=== PATIENT | male | born 1955 | race Caucasian/White ===

== ENCOUNTER 2023-01-25 10:00 | Emergency (ER) | payer MEDICARE, OTHER, SELFPAY ==
[2023-01-25] VITALS (32 sets, daily range): BP systolic 117–180; BP diastolic 84–97; PULSE 50–64; RESP 16; TEMP 36.6; O2SAT 93–98; BMI 30.8
--- NOTE | 2023-01-25 11:00 | CRLHL7_ITS ---
For Patients: As a result of the Cures Act, medical imaging exams and procedure reports are released immediately into your electronic medical record. You may view this report before your referring provider. If you have questions, please contact your health care provider. INDICATION: Chest pain TECHNIQUE: Chest 2 views COMPARISON: None FINDINGS: Surgical clips right upper quadrant. Osseous loose bodies in the subcoracoid space left shoulder measuring in total 2.3 cm. Aortic tortuosity. Discogenic spurring thoracic spine. No infiltrate or edema. No effusion or pneumothorax. IMPRESSION: No acute cardiopulmonary disease. Dictated by Michael Horner MD @ 01/25/2023 11:40:22 AM (Electronically Signed)
--- NOTE | 2023-01-25 11:16 | ED_ITS ---
HPI - General Adult General Date Seen: 01/25/23 Chief complaint: Chest Pain Stated complaint: Chest pain Time Seen by Provider: 01/25/23 10:26 History of Present Illness HPI narrative: This is a pleasant 67-year-old male with a past history of hypertension, dyslip idemia (and also possible self diagnosed GERD) who presents to the ER today with concern for chest discomfort. He is here with his to help supplement his history. Patient is generally very physically active and exercises vigorously. He does not have any history of cardiovascular disease or stents. He does have a history of hypertension and his long-term controlled on metoprolol and history of dyslipidemia (managed on atorvastatin). He has a family history of coronary disease; his brother and his mother. He had had a history of reflux of started himself on Prilosec OTC a few years ag o. About about a month ago he decided to take himself off it because he was concerned it was linked to develop an of dementia. He also gives blood regularly. Last month any went to give blood he was noted to be hypertensive (roughly 150/90). Based on that information he made the decision to increase his long-term dose of metoprolol from 50 mg daily up to 100 mg daily and has been taking that dose since last month. For about the past week or so he has been having some discomfort in the substernal region of his chest. It feels like a burning or and I see feeling. It is present most of the time. He does not really know what brings it on or makes it better. He does not think it was there this morning when he was working out but it was there this morning at around 6:15 a.m. after he was home from working out. There is not exertional component. Sometimes he gets a gassy feeling in his upper back, but that is a more long-term symptoms. No other new symptoms this week. No pain through to the back. No pleuritic pain. No swelling in his legs. No fever. No cough. No trouble breathing. No palpitations. No abdominal pain. Related Data Home Medications Medication Instructions Recorded Confirmed atorvastatin .ROUTE 01/25/23 metoprolol tartrate .ROUTE 01/25/23 Allergies Allergy/AdvReac Type Severity Reaction Status Date / Time No Known Drug Allergies Allergy Verified 01/25/23 10:15 PFSH PFSH Social History Smoking Status: Never smoker How often do you have a drink containing alcohol: monthly or less AUDIT-C Alcohol total score: 1 Non-prescribed substance use: denies use Exam Narrative: Exam Narrative: Constitutional: Appears well-developed and well-nourished. Alert. Conversant. Non toxic. HENT: Head: Atraumatic. Nose: Nose normal. Mouth/Throat: Oral mucosa is clear and moist. no trismus. Pharynx normal. Tonsils symmetric. No tonsillar enlargement, erythema, or exudate. Eyes: Conjunctivae normal. EOM normal. Pupils equal, round, and reactive to light. No scleral icterus. Neck: Normal range of motion. Neck supple. No tracheal deviation present. No JVD Cardiovascular: Bradycardic, sinus bradycardic 54 on the monitor. regular rhythm. No gallop. No friction rub. No murmur heard. Symmetric radial and PT/DP artery pulses Pulmonary/Chest: Effort normal. No stridor. No respiratory distress. No wheezes. No rales. No rhonchi . No tenderness. Abdominal: Soft. Bowel sounds normal. No distension. No mass. No tenderness. No rebound. No guarding. Musculoskeletal: RUE: Normal range of motion. No tenderness. No deformity LUE: Normal range of motion. No tenderness. No deformity RLE: Normal range of motion. No edema. No tenderness. No deformity LLE: Normal range of motion. No edema. No tenderness. No deformity Lymph: No cervical adenopathy. Neurological: Alert and oriented to person, place, and time. Normal strength. CN II-VII intact. No sensory deficit. GCS eye subscore is 4. GCS verbal subscore is 5. GCS motor subscore is 6. Normal coordination Skin: Skin is warm and dry. No rash noted. No pallor. Normal capillary refill. Psychiatric: Normal mood. Normal affect. Const: Vital Signs, click to edit/add: Vital Signs - 24 hr 01/25/23 10:16 01/25/23 10:25 01/25/23 10:30 Temperature 97.9 F Pulse Rate 55 L 56 L Pulse Rate [Right Pulse Oximeter] 53 L Respiratory Rate 16 Blood Pressure Blood Pressure [Ri ght Upper Arm] 180/94 H Pulse Oximetry 97 96 96 Oxygen Delivery Me thod Room Air 01/25/23 10:45 01/25/23 11:00 01/25/23 11:23 Temperature Pulse Rate 64 50 L 53 L Pulse Rate [Right Pulse Oximeter] Respiratory Rate Blood Pressure Blood Pressure [Ri ght Upper Arm] Pulse Oximetry 97 96 96 Oxygen Delivery Me thod 01/25/23 11:28 01/25/23 11:30 01/25/23 11:32 Temperature Pulse Rate 53 L 54 L 64 Pulse Rate [Right Pulse Oximeter] Respiratory Rate Blood Pressure 165/97 H 132/87 Blood Pressure [Ri ght Upper Arm] Pulse Oximetry 95 97 95 Oxygen Delivery Me thod 01/25/23 11:45 01/25/23 11:47 01/25/23 12:00 Temperature Pulse Rate 54 L 56 L 58 L Pulse Rate [Right Pulse Oximeter] Respiratory Rate Blood Pressure 134/85 Blood Pressure [Ri ght Upper Arm] Pulse Oximetry 96 96 95 Oxygen Delivery Me thod 01/25/23 12:02 01/25/23 12:03 01/25/23 12:05 Temperature Pulse Rate 55 L 55 L Pulse Rate [Right Pulse Oximeter] Respiratory Rate Blood Pressure 132/94 H Blood Pressure [Ri ght Upper Arm] Pulse Oximetry 95 95 94 Oxygen Delivery Me thod 01/25/23 12:15 01/25/23 12:17 01/25/23 12:30 Temperature Pulse Rate 56 L 57 L 57 L Pulse Rate [Right Pulse Oximeter] Respiratory Rate Blood Pressure 133/89 Blood Pressure [Ri ght Upper Arm] Pulse Oximetry 96 93 95 Oxygen Delivery Me thod 01/25/23 12:32 01/25/23 12:33 01/25/23 12:45 Temperature Pulse Rate 58 L 58 L 59 L Pulse Rate [Right Pulse Oximeter] Respiratory Rate Blood Pressure 125/88 Blood Pressure [Ri ght Upper Arm] Pulse Oximetry 93 97 97 Oxygen Delivery Me thod 01/25/23 12:47 01/25/23 13:00 01/25/23 13:02 Temperature Pulse Rate 55 L 56 L 51 L Pulse Rate [Right Pulse Oximeter] Respiratory Rate Blood Pressure 129/91 H 133/85 Blood Pressure [Ri ght Upper Arm] Pulse Oximetry 95 96 98 Oxygen Delivery Me thod 01/25/23 13:15 01/25/23 13:17 01/25/23 13:30 Temperature Pulse Rate 57 L 57 L 53 L Pulse Rate [Right Pulse Oximeter] Respiratory Rate Blood Pressure 124/92 H Blood Pressure [Ri ght Upper Arm] Pulse Oximetry 97 96 96 Oxygen Delivery Me thod 01/25/23 13:32 01/25/23 13:33 01/25/23 13:45 Temperature Pulse Rate 57 L 57 L 58 L Pulse Rate [Right Pulse Oximeter] Respiratory Rate Blood Pressure 134/85 Blood Pressure [Ri ght Upper Arm] Pulse Oximetry 97 97 95 Oxygen Delivery Me thod Course Vital Signs Vital signs: Initial Vital Signs Temperature 97.9 F 01/25/23 10:16 Temperature Source Temporal Artery Scan 01/25/23 10:16 Pulse Rate 53 L 01/25/23 10:16 Pulse Rhythm Regular 01/25/23 10:16 Respiratory Rate 16 01/25/23 10:16 Blood Pressure 180/94 H 01/25/23 10:16 Blood Pressure Mean 122 H 01/25/23 10:16 Blood Pressure Position Sitting 01/25/23 10:16 Pulse Oximetry 97 01/25/23 10:16 Oxygen Delivery Method Room Air 01/25/23 10:16 Vital Signs Temperature 97.9 F 01/25/23 10:16 Pulse Rate 53 L 01/25/23 10:16 Respiratory Rate 16 01/25/23 10:16 Blood Pressure 180/94 H 01/25/23 10:16 Pulse Oximetry 97 01/25/23 10:16 Oxygen Delivery Method Room Air 01/25/23 10:16 Temperature 97.9 F 01/25/23 10:16 Pulse Rate 58 L 01/25/23 13:45 Respiratory Rate 16 01/25/23 10:16 Blood Pressure 134/85 01/25/23 13:32 Pulse Oximetry 95 01/25/23 13:45 Oxygen Delivery Method Room Air 01/25/23 10:16 Medical Decision Making MDM Narrative Medical decision making narrative: This patient presents to the ER today for evaluation of chest pain. Differential was broad. No evidence of palpitations, syncope or other cardiac dysrhythmia. We considered possible ACS, however workup with EKG and troponin is negative. HEART score is 3. Given time since onset of symptoms, I do not think the patient needs to be admitted for further sets of enzymes. EKG shows no evidence for pericarditis. Clinical presentation not suggestive of myocarditis. Chest x-ray shows no evidence for pneumonia, pneumothorax, pulmonary edema, pleural effusion, rib fracture, cardiomegaly. Mediastinum is normal on the x-ray. The patient has no ripping or tearing pain through to the back and has symmetric pulses on exam, no other acute neuro findings so I doubt aortic dissection. Risk of radiation and contrast exposure would outweigh the benefit of CT angiogram. We considered PE for this patient. d dimer is normal. No wheezing or bronchospasm to suggest COPD/asthma. No signs of chest wall cellulitis, shingles, injury. Patient recently took himself off a proton pump inhibitor. With his description of the pain as being somewhat burning and I see it is possible that this pain is related to esophagitis. That would be a diagnosis of exclusion. He will follow up with primary care for further evaluation. Consider EGD if pain not resolving. For now he does not want to restart PPI. BP was elevated at triage. BP came down to normal without antihypertensive treatment. He will continue on his metoprolol for now. Resting heart rate is in the 50s. He is not otherwise symptomatic or presyncopal from bradycardia. He will follow-up with his PCP for further blood pressure medication adjustments if needed. With reasonable clinical confidence, I think the patient is safe for outpatient follow up. Discussed return precautions. Questions answered. Patient voices comfort with the plan. Lab Data Labs: Lab Results 01/25/23 01/25/23 Range/Units 11:10 13:08 WBC 6.61 (4.50-11.00) K/uL RBC 4.22 L (4.30-5.90) m/uL Hgb 13.7 (13.5-17.5) gm/dL Hct 40.8 (37.0-53.0) % MCV 97 (80-100) fL MCH 33 (26-34) pg MCHC 34 (32-36) gm/dL RDW Coeff of Sadia 12.4 (11.5-15.5) % Plt Count 270 (140-440) K/uL Neut % (Auto) 63.5 (42.0-72.0) % Lymph % (Auto) 25.1 (20-44) % [place] % (Auto) 9.4 (0.0-11.0) % Eos % (Auto) 1.7 (0.0-7.0) % Baso % (Auto) 0.3 (0.0-3.0) % Neut # (Auto) 4.20 (1.7-7.0) K/uL Lymph # (Auto) 1.66 (0.90-2.90) K/uL [place] # (Auto) 0.60 (0.00-0.90) K/UL Eos # (Auto) 0.11 (0.00-0.50) K/uL Baso # (Auto) 0.02 (0.00-0.30) K/uL Abs Immat Gran (auto) 0.00 (0.00-0.30) K/uL Imm/Tot Granulo (auto) 0.0 % D-Dimer Quant (PE/DVT) 0.29 (0.00-0.50) ug/ml Sodium 141 (135-149) mmol/L Potassium 4.0 (3.6-5.1) mmol/L Chloride 106 (96-114) mmol/L Carbon Dioxide 27 (20-32) mmol/L Anion Gap 8 (7-15) mEq/L BUN 21 (7-30) mg/dL Creatinine 1.1 (0.5-1.5) mg/dL Estimated Creat Clear 57.46 Estimated GFR 74 ml/min Glucose 90 (60-115) mg/dL Calcium 9.6 (8.4-10.6) mg/dL Troponin I < 0.01 L < 0.01 L (0.01-0.04) ng/mL Imaging Data Chest x-ray: Radiologist's impression: IMPRESSION: No acute cardiopulmonary disease. ECG Data Attestation: I personally reviewed and interpreted this ECG as follows: Interpretation: Sinus bradycardia. Rate 53. IN 144 QRS axis normal axis. No pathologic Q-waves. ST segment/T wave: No ST segment elevation or depression. QTc: 409 Discharge Plan Discharge Clinical Impression: Chest pain Patient Disposition: Home, Self-Care Condition: Stable Instructions: Chest Pain (DC) Additional Instructions: If you have any worsening symptoms such as worsening chest pain, trouble breathing, lightheaded or dizzy spells, or any concerns, return to the ER immediately. Follow-up with your regular doctor within the next 1-5 days for a checkup and ask them to recheck your blood pressure and to arrange a stress test. Your blood pressure has come down to near normal here in the ER. Continue on your current blood pressure medications. Your heart rate is slow. This is probably a side effect of your metoprolol. See your regular doctor before you make any further medication adjustments. Prescriptions: No Action metoprolol tartrate .ROUTE atorvastatin .ROUTE Follow Up/Referrals: Provider,Not a Local [Primary Care Provider] - Stand Alone Forms: [employer] Info Instructions
[2023-01-25 11:23] LABS: Basophils Absolute Auto 0.02 K/uL (0.00-0.30); Basophils Percent Auto 0.3 % (0.0-3.0); Eosinophils Absolute Auto 0.11 K/uL (0.00-0.50); Eosinophils Percent Auto 1.7 % (0.0-7.0); Hematocrit 40.8 % (37.0-53.0); Hemoglobin* 13.7 gm/dL (13.5-17.5); Lymphocytes Absolute Auto 1.66 K/uL (0.90-2.90); Lymphocytes Percent Auto 25.1 % (20-44); Mean Corpuscular HGB Conc 34 gm/dL (32-36); Mean Corpuscular Hemoglobin 33 pg (26-34); Mean Corpuscular Volume 97 fL (80-100); Monocytes Percent Auto 9.4 % (0.0-11.0); Neutrophils Percent Auto 63.5 % (42.0-72.0); Platelet Count* 270 K/uL (140-440); RDW Coefficient of Variation % 12.4 % (11.5-15.5); Red Blood Count 4.22 m/uL (4.30-5.90); White Blood Count* 6.61 K/uL (4.50-11.00)
[2023-01-25] MEDS: NITROGLYCERIN 0.4 MG TAB.SUBL SUBLINGUAL (11:33)
[2023-01-25] MEDS: MAG HYDROX/ALUMINUM HYD/SIMETH 30 ML ORAL.SUSP 15 ML PO (11:34)
[2023-01-25] MEDS: ASPIRIN 81 MG TAB.CHEW 324 MG PO (11:34)
[2023-01-25] MEDS: PANTOPRAZOLE SODIUM 40 MG INJ IVP (11:34)
[2023-01-25 11:38] LABS: Chloride* 106 mmol/L (96-114); Sodium* 141 mmol/L (135-149)
[2023-01-25 11:41] LABS: Anion Gap 8 mEq/L (7-15); Blood Urea Nitrogen* 21 mg/dL (7-30); Carbon Dioxide* 27 mmol/L (20-32); Creatinine* 1.1 mg/dL (0.5-1.5); Est. Creatinine Clearance* 57.46; Estimated Glomerular Filt Rate 74 ml/min
[2023-01-25 11:42] LABS: Calcium* 9.6 mg/dL (8.4-10.6); Glucose* 90 mg/dL (60-115)
[2023-01-25 11:43] LABS: D Dimer Quantitative* 0.29 ug/ml (0.00-0.50)
[2023-01-25 11:54] LABS: Troponin I* < 0.01 ng/mL (0.01-0.04)
--- OUTSIDE RECORDS SUMMARY | 2023-01-25 11:55 | XMS_ITS | Continuity of Care Document ---
Author Name Unknown Organization [facility] [address] Phone Care Team Providers Care Chamber Worker Name Role Phone Bradford Bray MD Unavailable Unavailable Advance Directives Directive Yes / No Effective Date File Name No Information Encounters Encounter Description Practice Location Reason(s) For Visit Diagnoses Date Provider Providers Copied on Encounter [facility], One [address] [place] [address] [place], [id number], [place] tel:[phone] [facility] No Information Katarina Felder. One [address] [place], [place] [address]D[place], [id number], [place]. tel:[phone] Family History Family Member Type Diagnosis Age At Onset No Information Payers Payer name Insurance type Covered libertarian ID Authoriza tion(s) No Information Social History Type Description Quantity Date Captured Comments Sex Male Smoking Status No Information Chief Complaint And Reason For Visit No Information Reason For Referral Reason For Referral No Information History Of Present Illness Encounter Date Complaint History Of Prese nt Illness No Information Functional Status Date Functional Assessmen t No Information Instructions Date Instruction Additional Infor mation No Information Assessments Type Assessment Date No Information Patient Care Teams Name Effective Dates (start - stop) Status Members No Information
--- OUTSIDE RECORDS SUMMARY | 2023-01-25 11:55 | XMS_ITS | Continuity of Care Document ---
Author Name Unknown Organization [facility] [address] Phone Care Team Providers Care Binding Dyer Name Role Phone Bradford Bray MD Unavailable Unavailable Advance Directives Directive Yes / No Effective Date File Name No Information Encounters Encounter Description Practice Location Reason(s) For Visit Diagnoses Date Provider Providers Copied on Encounter [facility], One [address] [place] [address] [place], [id number], [place] tel:[phone] [facility] No Information Katarina Felder. One [address] [place], [place] [address], [id number], [place]. tel:[phone] Family History Family Member Type Diagnosis Age [...]
[2023-01-25 12:46] LABS: Slide Review Reflex No
[2023-01-25 13:47] LABS: Troponin I* < 0.01 ng/mL (0.01-0.04)
--- NOTE | 2023-01-25 13:47 | ED.NURSE ---
Patient reports resolution of symptoms, although the pain was intermittent to start with. Updated that waiting on one additional repeat lab at this time.
== END 2023-01-25 14:06 | disposition home or self-care (01) ==
PROVIDERS: Emergency Provider Emergency Medicine
DX: R07.9 Chest pain, unspecified (principal)
CPT/HCPCS: 36415; 71046; 80048; 84484; 85025; 85379; 93005; 94761; 96374; 99283; 99284; 99285; A9270; C9113

== ENCOUNTER 2024-03-28 10:46 | Emergency (ER) | payer MEDICARE, SELFPAY ==
[2024-03-28] VITALS (13 sets, daily range): BP systolic 143–166; BP diastolic 88–96; PULSE 50–57; RESP 18; TEMP 36.2; O2SAT 95–97; BMI 31.8
--- NOTE | 2024-03-28 11:29 | ED_ITS ---
HPI - General Adult General Time Seen by Provider: 11:29 Date Seen: 03/28/24 Chief complaint: Chest Pain Stated complaint: chest pain Time Seen by Provider: 03/28/24 11:05 History of Present Illness HPI narrative: Collins is a 68-year-old male with hypertension, GERD, hyperlipidemia presents emerged department via private car and with with chest pain. Patient states over the last 3 days, has left-sided chest discomfort, the discomfort is right under his left breast, no radiation, no changes with inspiration, no changes with exertion. Patient is also been more short of breath on exertion, denies any orthopnea, he does sleep on his side, no increased weight gain or lower extremity edema. No history of any CAD however his brother of an MT a few years ago. Patient denies any smoking. Patient has not had any cough, fevers or chills. He denies any nausea vomiting, no abdominal pain, no urinary complaints, no diarrhea. No lightheadedness, dizziness. Denies any back pain. Patient has had intermittent sharp pains to his left arm which come and go, no changes with exertion or movement. Patient id can see his primary care provider until the end of May. He has not had a stress test in the past. Patient has similar episode and was seen in the emergency department here in [place] a few years ago. Patient has the dull ache under his left breast, denies any arm pain at this time. Related Data Home Medications ?Medication ?Instructions ?Recorded ?Confirmed atorvastatin .Route 01/25/23 metoprolol tartrate .Route 01/25/23 omeprazole 20 mg capsule,delayed 20 mg PO 3XD 03/28/24 03/28/24 release Allergies Allergy/AdvReac Type Severity Reaction Status Date / Time No Known Drug Allergies Allergy Verified 01/25/23 10:15 Review of Systems Status of ROS: Reports: 10 or more systems reviewed and unremarkable except as noted in History and below PFSH PFS Social History Smoking Status: Never smoker How often do you have a drink containing alcohol: monthly or less AUDIT-C Alcohol total score: 1 Non-prescribed substance use: denies use Exam Narrative: Exam Narrative: General: No obvious distress sitting comfortably HEENT: Pupils equal round reactive to light, extraocular muscles intact Neck: Supple full range of motion, no JVD Lungs: Clear to auscultation bilaterally Heart: Sinus bradycardia Abdomen: Soft nontender, bowel sounds present Extremities: No lower extremity edema Neuro: Alert awake and oriented x3, GCS 15 Const: Vital Signs, click to edit/add: Vital Signs - 24 hr 03/28/24 10:55 03/28/24 11:05 03/28/24 11:06 Temperature 97.2 F L Pulse Rate 55 L 55 L Pulse Rate [Pulse Oximeter] 57 L Respiratory Rate 18 Blood Pressure 159/96 H Blood Pressure [Le ft Upper Arm] 166/94 H Pulse Oximetry 96 95 95 Oxygen Delivery Me thod Room Air 03/28/24 11:15 03/28/24 11:30 03/28/24 11:33 Temperature Pulse Rate 57 L 53 L 53 L Pulse Rate [Pulse Oximeter] Respiratory Rate Blood Pressure 149/93 H Blood Pressure [Le ft Upper Arm] Pulse Oximetry 95 95 96 Oxygen Delivery Me thod 03/28/24 11:45 03/28/24 12:00 03/28/24 12:02 Temperature Pulse Rate 55 L 55 L 54 L Pulse Rate [Pulse Oximeter] Respiratory Rate Blood Pressure 157/91 H Blood Pressure [Le ft Upper Arm] Pulse Oximetry 95 97 97 Oxygen Delivery Me thod 03/28/24 12:15 03/28/24 13:02 03/28/24 13:32 Temperature Pulse Rate 51 L 50 L 53 L Pulse Rate [Pulse Oximeter] Respiratory Rate 18 Blood Pressure 151/89 H 158/89 H Blood Pressure [Le ft Upper Arm] Pulse Oximetry 97 97 97 Oxygen Delivery Me thod Room Air 03/28/24 14:02 Temperature Pulse Rate 54 L Pulse Rate [Pulse Oximeter] Respiratory Rate 18 Blood Pressure 143/88 H Blood Pressure [Le ft Upper Arm] Pulse Oximetry 97 Oxygen Delivery Me thod Room Air Course Course ED Course: ED course: AIDET performed. Vitals are normal at this time, workup will include EKG, IV peripheral, 15 mg IV Toradol, will obtain troponin, CBC, CMP, lipase, NT proBNP and D-dimer, will arrange patient for a exercise stress echo on outpatient basis, differential includes NSTEMI, STEMI, pericarditis, pleurisy, pulmonary embolism, pneumonia, bronchitis, muscle skeletal, costochondritis, anxiety, GERD, gastritis, cholecystitis, DVT, radiculopathy as well as all etiologies. Heart score low risk. Reevaluation(s) Time of Reevaluation #1: 13:06 Reevaluation #1: ECG shows a sinus bradycardia, bpm 76, no acute ST changes, troponin point of care 0.01, will plan to repeat, CBC showed no leukocytosis, D-dimer hand NT proBNP within normal limits, comprehensive metabolic unremarkable, XR chest PA and lateral showed no acute cardiopulmonary process, patient is feeling better after above care given, was able to schedule a stress echo exercise tomorrow and close follow-up with primary care provider. Time of Reevaluation #2: 13:58 Reevaluation #2: Imaging: FINDINGS: Surgical clips right upper quadrant. Osseous loose bodies in the subcoracoid space left shoulder measuring in total 2.3 cm. Aortic tortuosity. Discogenic spurring thoracic spine. No infiltrate or edema. No effusion or pneumothorax. Time of Reevaluation #3: 14:08 Reevaluation #3: Second troponin T 0.00, patient is doing well, we will plan to discharge, patient is scheduled for outpatient stress echo tomorrow afternoon, close follow-up with primary care provider was also arranged. All questions answered, reasons to return given. Vital Signs Vital signs: Initial Vital Signs Temperature 97.2 F L 03/28/24 10:55 Temperature Source Temporal Artery Scan 03/28/24 10:55 Pulse Rate 57 L 03/28/24 10:55 Respiratory Rate 18 03/28/24 10:55 Blood Pressure 166/94 H 03/28/24 10:55 Blood Pressure Mean 118 H 03/28/24 10:55 Blood Pressure Position Supine 03/28/24 10:55 Pulse Oximetry 96 03/28/24 10:55 Oxygen Delivery Method Room Air 03/28/24 10:55 Vital Signs Temperature 97.2 F L 03/28/24 10:55 Pulse Rate 57 L 03/28/24 10:55 Respiratory Rate 18 03/28/24 10:55 Blood Pressure 166/94 H 03/28/24 10:55 Pulse Oximetry 96 03/28/24 10:55 Oxygen Delivery Method Room Air 03/28/24 10:55 Temperature 97.2 F L 03/28/24 10:55 Pulse Rate 54 L 03/28/24 14:02 Respiratory Rate 18 03/28/24 14:02 Blood Pressure 143/88 H 03/28/24 14:02 Pulse Oximetry 97 03/28/24 14:02 Oxygen Delivery Method Room Air 03/28/24 14:02 Medications Administered Medications: Discontinued Medications Generic Name Dose Route Start Last Admin Trade Name Hussein PRN Reason Stop Dose Admin Ketorolac Tromethamine 15 mg 03/28/24 11:30 03/28/24 12:02 Ketorolac 15 Mg/Ml Inj IVP 03/28/24 11:31 15 mg ONCE ONE Administration Medical Decision Making Lab Data Labs: Lab Results 03/28/24 03/28/24 03/28/24 Range/Units 11:30 11:30 11:30 WBC 5.82 (4.50-11.00) K/uL RBC 4.42 (4.30-5.90) m/uL Hgb 11.6 L (13.5-17.5) gm/dL Hct 37.2 (37.0-53.0) % MCV 84 (80-100) fL MCH 26 (26-34) pg MCHC 31 L (32-36) gm/dL RDW Coeff of Sadia 15.5 (11.5-15.5) % Plt Count 293 (140-440) K/uL Neut % (Auto) 54.9 (42.0-72.0) % Lymph % (Auto) 29.9 (20-44) % [place] % (Auto) 10.5 (0.0-11.0) % Eos % (Auto) 4.0 (0.0-7.0) % Baso % (Auto) 0.7 (0.0-3.0) % Neut # (Auto) 3.20 (1.7-7.0) K/uL Lymph # (Auto) 1.74 (0.90-2.90) K/uL [place] # (Auto) 0.60 (0.00-0.90) K/UL Eos # (Auto) 0.23 (0.00-0.50) K/uL Baso # (Auto) 0.04 (0.00-0.30) K/uL Abs Immat Gran (auto) 0.00 (0.00-0.30) K/uL Imm/Tot Granulo (auto) 0.0 % D-Dimer Quant (PE/DVT) < 0.27 (0.00-0.50) ug/ml Sodium 138 (135-149) mmol/L Potassium 4.3 (3.6-5.1) mmol/L Chloride 104 (96-114) mmol/L Carbon Dioxide 25 (20-32) mmol/L Anion Gap 9 (7-15) mEq/L BUN 20 (7-30) mg/dL Creatinine 1.0 (0.5-1.5) mg/dL Estimated Creat Clear 60.02 Estimated GFR 82 ml/min Glucose 86 (60-115) mg/dL Calcium 9.3 (8.4-10.6) mg/dL Total Bilirubin 0.7 (0.1-1.5) mg/dL AST 36 H (12-35) U/L ALT 30 (4-50) U/L Alkaline Phosphatase 50 (40-150) U/L NT-Pro-B Natriuret Pep 97 Cancelled pg/mL Total Protein 7.5 (6.0-8.3) g/dL Albumin 4.3 (3.3-5.0) g/dL Lipase 42 Cancelled (23-300) U/L POC Troponin I 0.01 (0.01-0.04) ng/ml 03/28/24 Range/Units 13:33 WBC (4.50-11.00) K/uL RBC (4.30-5.90) m/uL Hgb (13.5-17.5) gm/dL Hct (37.0-53.0) % MCV (80-100) fL MCH (26-34) pg MCHC (32-36) gm/dL RDW Coeff of Sadia (11.5-15.5) % Plt Count (140-440) K/uL Neut % (Auto) (42.0-72.0) % Lymph % (Auto) (20-44) % [place] % (Auto) (0.0-11.0) % Eos % (Auto) (0.0-7.0) % Baso % (Auto) (0.0-3.0) % Neut # (Auto) (1.7-7.0) K/uL Lymph # (Auto) (0.90-2.90) K/uL [place] # (Auto) (0.00-0.90) K/UL Eos # (Auto) (0.00-0.50) K/uL Baso # (Auto) (0.00-0.30) K/uL Abs Immat Gran (auto) (0.00-0.30) K/uL Imm/Tot Granulo (auto) % D-Dimer Quant (PE/DVT) (0.00-0.50) ug/ml Sodium (135-149) mmol/L Potassium (3.6-5.1) mmol/L Chloride (96-114) mmol/L Carbon Dioxide (20-32) mmol/L Anion Gap (7-15) mEq/L BUN (7-30) mg/dL Creatinine (0.5-1.5) mg/dL Estimated Creat Clear Estimated GFR ml/min Glucose (60-115) mg/dL Calcium (8.4-10.6) mg/dL Total Bilirubin (0.1-1.5) mg/dL AST (12-35) U/L ALT (4-50) U/L Alkaline Phosphatase (40-150) U/L NT-Pro-B Natriuret Pep pg/mL Total Protein (6.0-8.3) g/dL Albumin (3.3-5.0) g/dL Lipase (23-300) U/L POC Troponin I 0.00 L (0.01-0.04) ng/ml Discharge Plan Discharge Clinical Impression: Chest pain, Arm pain, left Patient Disposition: Home, Self-Care Condition: Improved Instructions: Chest Pain (ED) Additional Instructions: As discussed, your stress test is scheduled on 03/29 with a 12:45pm arrival time. Enter through the [facility] ER and check in at the frontend engineer. Please follow the instructions in the pamphlet that was provided to you. Your primary care follow up appointment is scheduled at the [facility] on 04/02 with an 11:40am appointment time. Please arrive at 11:30am to complete any paperwork. If you have any questions or need to reschedule, please call [phone]. Prescriptions: No Action omeprazole 20 mg capsule,delayed release(DR/EC) 20 mg PO 3XD metoprolol tartrate .Route atorvastatin .Route Follow Up/Referrals: Provider,Not a Local [Primary Care Provider] - Stand Alone Forms: Interactive [employer] Info Instructions
[2024-03-28 11:44] LABS: Basophils Absolute Auto 0.04 K/uL (0.00-0.30); Basophils Percent Auto 0.7 % (0.0-3.0); Eosinophils Absolute Auto 0.23 K/uL (0.00-0.50); Hematocrit 37.2 % (37.0-53.0); Hemoglobin* 11.6 gm/dL (13.5-17.5); Lymphocytes Absolute Auto 1.74 K/uL (0.90-2.90); Lymphocytes Percent Auto 29.9 % (20-44); Mean Corpuscular HGB Conc 31 gm/dL (32-36); Mean Corpuscular Hemoglobin 26 pg (26-34); Mean Corpuscular Volume 84 fL (80-100); Monocytes Percent Auto 10.5 % (0.0-11.0); Neutrophils Percent Auto 54.9 % (42.0-72.0); Platelet Count* 293 K/uL (140-440); RDW Coefficient of Variation % 15.5 % (11.5-15.5); Red Blood Count 4.42 m/uL (4.30-5.90); White Blood Count* 5.82 K/uL (4.50-11.00)
[2024-03-28 11:47] LABS: Troponin, Point-of-Care* 0.01 ng/ml (0.01-0.04)
[2024-03-28 11:52] LABS: Slide Review Reflex No
[2024-03-28 11:58] LABS: Albumin* 4.3 g/dL (3.3-5.0); Chloride* 104 mmol/L (96-114)
[2024-03-28 11:59] LABS: Sodium* 138 mmol/L (135-149)
[2024-03-28 12:01] LABS: Anion Gap 9 mEq/L (7-15); Aspartate Amino Transferase* 36 U/L (12-35); Bilirubin Total* 0.7 mg/dL (0.1-1.5); Carbon Dioxide* 25 mmol/L (20-32); Est. Creatinine Clearance* 60.02; Estimated Glomerular Filt Rate 82 ml/min; Potassium* 4.3 mmol/L (3.6-5.1); Total Protein* 7.5 g/dL (6.0-8.3)
[2024-03-28 12:02] LABS: Alanine Aminotransferase* 30 U/L (4-50); Alkaline Phosphatase* 50 U/L (40-150); Blood Urea Nitrogen* 20 mg/dL (7-30); Calcium* 9.3 mg/dL (8.4-10.6); Glucose* 86 mg/dL (60-115); Lipase* 42 U/L (23-300)
[2024-03-28] MEDS: KETOROLAC 15 MG/ML inj IVP (12:02)
--- OUTSIDE RECORDS SUMMARY | 2024-03-28 12:05 | XMS_ITS | Encounter Summary ---
Author Organization [facility] Address [address] [place] [address]. 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 No / Unsure 01/30/2021 7:19 PM CDT documented as of this encounter Plan of Treatment Not on file documented as of this encounter Visit Diagnoses Not on filedocumented in this encounter Care Teams Drive Away Driver Relationship Specialty [place] [address] [place] [id number] PCP - General Family Practice 09/06/18 documented as of this encounter
--- OUTSIDE RECORDS SUMMARY | 2024-03-28 12:05 | XMS_ITS | Clinical Summary ---
Author Organization [employer] [facility] Address [place], [place] [address] Care Team Providers Care Research Program Assistant Name Role Phone Dustin Christianson DO Primary Care Provide r Allergies Active Allergy Reactions Criticality Noted Date Comments Amlodipine *Unknown 10/30/2020 Pravastatin Myalgia 10/30/2020 Simvastatin Myalgia 10/30/2020 adverse reaction Medications Medication Sig Dispensed Refills Start Date End Date Status sildenafil citrate (VIAGRA) 100 mg tabletIndications:Othe r male erectile dysfunction Take 1 Tablet (100 mg) by mouth once daily if needed for Erectile Dysfunction. Take 30min to 4 hours before sexual activity. Max 100mg/24hr. 30 Tablet 11 04/01/2021 Active metoprolol succinate (TOPROL XL) 100 mg Sustained-Release tabletIndications:Esse ntial hypertension Take 1 Tablet (100 mg) by mouth once daily. 90 Tablet 3 05/24/2023 Active omeprazole (PRILOSEC) 20 mg Delayed-Release capsuleIndications:Chr onic GERD Take 1 Capsule (20 mg) by mouth once daily before a meal. 90 Capsule 3 05/24/2023 Active atorvastatin (LIPITOR) 40 mg tabletIndications:Othe r hyperlipidemia Take 1 Tablet (40 mg) by mouth once daily. 90 Tablet 02/18/2024 Active Active Problems No known active problems Encounters Date Type Department Care Team Description 02/17/2024 Refill [facility] [address] [place] [phone] Dustin Christianson DO Refill Request (Atorvastatin) from Last 3 Months Immunizations Name Administration Dates Next Due Influenza, High-dose Quadriv alent Inactivated 04/19/2022 Influenza, IIV4 04/01/2021,02/21/2020,03/04/2017 Influenza, IIV4 (Age 6-35 Mos) 02/09/2018 Influenza, Inactivated AIIV4 (Age 65+ Years) Preserv Free 04/08/2023 Pneumococcal Conj 20-valent (Prevnar 20) 023 Tdap 01/01/2014 Zoster (Shingrix-RZV, recombinant) 01/14/2023, Family History Medical History Relation Name Comments Cancer-prostate Father Relation Name Status Comments Father Mother Social History Tobacco Use Types Packs/Day Years Used Date Smoking Tobacco: Never Smokeless Tobacco: Never Tobacco Cessation:Counseling Given: Not Answered Alcohol Use Standard Drinks/Week Comments Yes 0 (1 standard drink = 0.6 oz pur e alcohol) 5 drinks a week PHQ-2 Answer Date Recorded PHQ-2 TOTAL SCORE 0 05/24/2023 Social Connections Answer Date Recorded Do you often feel lonely or isolated from those around you? 0 05/24/2023 Financial Resource Strain Answer Date R ecorded Difficulty of Paying Living Expenses 3 05/24/2023 Difficulty of Paying Living Expenses Not on file 05/24/2023 Food Insecurity Answer Date Recorded Do you worry your food will run out before you are able to buy more? 1 05/24/2023 Transportation Needs Answer Date Record ed Does lack of transportation keep you from medica l appointments? 1 05/24/2023 Does lack of transportation keep you from work, meetings or getting things that you need? 1 05/24/2023 Housing Stability Answer Date Recorded What is your housing situation today? 1 05/24/2023 Sex and Gender Information Value Date Recorded Sex Assigned at Not on file Gender Identity Not on file Sexual Orientation Not on file Obstetrics History Last Filed Vital Signs Vital Sign Reading Time Taken Comments Blood Pressure 130/82 05/24/2023 8:25 AM CLAM DREDGE [employer]AT CAPTAIN Pulse 50 05/24/2023 8:25 AM CLAM [employer]TAIN Temperature - - Respiratory Rate - - Oxygen Saturation 98% 05/24/2023 8:25 AM CLAM [employer]ED[employer]AT CAPTAIN Inhaled Oxygen Concentration - - Weight 84.4 kg (186 lb) 05/24/2023 8:25 AM CLAM [employer]AT CAPTAIN Height 163.8 cm (5' 4.5) 05/24/2023 8:25 AM CLAM [employer] CAPTAIN Body Mass Index 31.43 05/24/2023 8:25 AM CLAM [employer]EDGE BOAT CAPTAIN Plan of Treatment Upcoming Encounters Date Type Department Care Team (Late st Contact Info) Description 05/28/2024 11:00 AM CLAM [employer]EDGE [employer]AT CAPTAIN Office Visit [facility] [address] [place] [address] Dustin Christianson [place], [address] [place] [address] Health Maintenance Due Date Last Done Comments Tetanus booster 01/02/2024 01/01/2014 COVID-19 vaccine series ( season) 2024 04/13/2021, 08/21/2020, 07/22/2020 Influenza for age 65+ 01/08/2024 04/08/2023 , 04/19/2022, 04/01/2021, Additional history exists BMI (ht and wt on same day) for age 18+ 05/24/2024 05/24/2023, 05/12/2022 Depression screening for age 12+ 05/24/2024 05/24/2023, 05/20/2023, 05/12/2022 Medicare Wellness for age 65+ 05/24/2024 05/24/2023, 05/12/2022 Lipids for age 45-75 05/24/2028 05/24/2023, 04/01/20 Colonoscopy through age 75 06/15/202806/15, 09/06/2018 (Verified in Care Everywhere or Patient Record) Tdap Completed 01/01/2014 Hepatitis C screening for ag e 18-79 Completed 04/01/2021 Pneumococcal series for age 65+ Completed Zoster (shingles) series for age 50+ Completed 01/14/2023, 08/13/2022 Procedures Procedure Name Priority Date/Time Associated Diagnosis Comments SCAN-COLONOSCOPY 06/15/2023 1:30 PM [employer]AM [employer]TAIN LIPID PANEL W REFLEX MEASURED LDL Routine 05/24/2023 8:54 AM CLAM [employer]AT CAPTAIN Other hyperlipidemia ANTI HCV Routine 04/01/2021 4:32 PM CLAM [employer] CAPTAIN Need for hepatitis C screening test from Last 3 Months or Most Recently Relevant to Health Maintenance Results * SCAN-COLONOSCOPY (06/15/2023 1:30 PM CLAM DREDGE [employer]AT CAPTAIN) Narrative Procedure Note Sole Hernandez MD - 06/15/2023 12:44 PM CST [facility] [address] [place] [address], [address], [place] [id number] Patient Name: Collins Perry Gender: Male Exam Date: 06/15/2023 Visit Number: [id number] Age: 67 Years Date of : 1955 Attending MD: Sole Hernandez MD Medical Record#: [id number] Procedure: Colonoscopy Indications: Previous adenomatous polyp(s) Referring MD: Dustin Christianson DO Primary MD: Dustin Christianson DO Medications: Admitting Medications: 0.9% Normal Saline 500cc 150cc/hour Intra Procedure Medications: Patient received monitored anesthesia care. Complications: No immediate complications Procedure: An examination of the heart and lungs was performed and found to be withinacceptable limits. . The patient was therefore deemed a reasonablecandidate for endoscopy and sedation. The risks and benefits of the procedure were explained to the patient.After obtaining informed consent, the patient received monitoredanesthesia care and I passed the scope without difficulty via the rectum to the cecum. The appendiceal orificeand ic valve were identified. The scope was retroflexed during theexamination The quality of the prep was good (Miralax/Gatorade/2 tabletsBisacodyl/Magnesium Citrate). This was a complete examination throughout the entire colon. Findings: Polyp location: cecum. Quantity: 1. Size: 6 mm. Polyp shape: sessile. Maneuver: polypectomy was performed with a cold snare. Removal: complete. Retrieval: complete. Bleeding: none. Polyp location: rectum. Quantity: 2. Size: 2 mm. Polyp shape: sessile. Maneuver: polypectomy was performed with a cold biopsy forceps. Removal: complete. Retrieval: complete. Bleeding: none. Hemorrhoids. External hemorrhoids without bleeding. Remainder of the exam is normal. Impression: Colorectal polyps Personal history of colonic polyps Hemorrhoids, external Preliminary Plan: The patient and their physician will receive a copy of the pathologyreport as well as pathology-based recommendations for future screening orsurveillance. Pathology Results: A: COLON, CECUM, POLYP: 1. Sessile serrated adenoma 2. Negative for overt dysplasia 3. Per the colonoscopy report: a. Polyp size: 6 mm b. Resection: Complete c. Retrieval: Complete B: RECTUM, POLYPS: 1. Hyperplastic polyps (2) MICROSCOPIC A: Performed B: Performed Electronically signed by: Lorenzo [place] [address] Orders Instruction(s)/Education: Instruction/Education Timeframe Assessment Colon Cancer Prevention K63.5 Colon Polyps K63.5 Hemorrhoids (External) K63.5 High Fiber Diet K63.5 Final Plan: Repeat colonoscopy in 5 years. We will attempt to contact you at appropriate intervals via U.S. mail. Wemay not be able to find you or contact you at that time, therefore youshould know that the responsibility for following our recommendation restswith you. If you don't hear from us at the time your procedure is due,please contact our office to schedule an appointment. If your contactinformation should change, please contact our office so that we can updateyour record. _Electronically signed by: Sole Hernandez MD 06/15/2023 cc: Dustin Christianson DO cc: Dustin Christianson DO Sole Hernandez MD OTHER * LIPID PANEL W REFLEX MEASURED LDL (05/24/2023 8:54 AM CLAM DREDGE BOAT CAPTAIN) CHOLESTEROL,TOTAL 136 100 - 199 mg/dL 05/24/2023 2:31 PM CLAM DREDGE BOAT CAPTAIN [facility] Comment: Cholesterol, Total Reference Ranges Desirable <200 mg/dL Borderline 200-239 mg/dL High >=240 mg/dL TRIGLYCERIDES 81 <150 mg/dL 05/24/2023 2:31 PM CLAM DRED[employer] CAPTAIN [facility] HDL CHOLESTEROL 43 >40 mg/dL 2:31 PM CLAM [employer]TAIN [facility] NON-HDL CHOLESTEROL 93 <145 mg/dl 05/24/2023 2:31 PM CL[employer]TAIN [facility] CHOL/HDL RATIO 3.16 <4.50 05/24/2023 2:31 PM CLAM [employer]ED[employer]TAIN [facility] LDL CHOLESTEROL 77 <=130 mg/dL 05/24/2023 2:31 PM CL[employer]TAIN [facility] VLDL CHOLESTEROL 16 <=30 mg/dL 05/24/2023 2:31 PM CL[employer]TAIN [facility] PROVIDER ORDERED STATUS RANDOM 05/24/2023 2:31 PM CLAM [employer]ED[employer]TAIN [facility] Blood BLOOD SPECIMEN / Unknown Venipuncture / Unknown 05/24/2023 8:54 AM CLAM [employer]EDGE BOAT CAPTAIN 05/24/2023 8:54 AM CLAM DREDGE BOAT CAPTAIN [facility] [address] [place] [address], * ANTI HCV (04/01/2021 4:32 PM CLAM DREDGE BOAT CAPTAIN) HEPATITIS C ANTIBODY Non-React loraine Non-React loraine 04/01/2021 10:59 PM CLAM [employer]EDGE BOAT CAPTAIN [facility] Comment:Antibodies to HCV no t detected; does not exclude the possibility of exposure to HCV. Blood BLOOD SPECIMEN / Unknown Venipuncture / Unknown 04/01/2021 4:32 PM CLAM DREDGE BOAT CAPTAIN 04/01/2021 4:34 PM CLAM DREDGE BOAT CAPTAIN [facility] [employer] DO SEND OUTS [facility] [address] [place] [address], from Last 3 Months or Most Recently Relevant to Health Maintenance Care Teams Research Program Assistant Relationship Specialty [place] [address] [place] [address] PCP - General Family Practice 01/18/18
--- OUTSIDE RECORDS SUMMARY | 2024-03-28 12:05 | XMS_ITS | Referral Summary ---
Author Organization [facility] Address [address] [place] [address] Care Team Providers Care Home Visits Nurse Name Role Phone Dustin Christianson Primary Care Provider [phone] Allergies No known active allergies Medications multivitamin, therapeutic with minerals (THERA-VIT-M) TABS Take 1 tablet by mouth daily Active Metoprolol Succinate 50 MG CS24 Take 50 mg by mouth daily Active HYDROCHLOROTHIA ZIDE PO Take 25 mg by mouth daily Active potassium chloride SA (K-DUR/KLOR-CON M) 10 MEQ CR tablet Take 10 mEq by mouth daily as needed for potassium supplementation Active Social History Tobacco Use Types Packs/Day Years Used Date Smoking Tobacco: Never Smokeless Tobacco: Never Alcohol Use Standard Drinks/Week Comments Yes 0 (1 standard drink = 0.6 oz pur e alcohol) weekly, but it varies Adolescent Education Answer Date Record ed Getting School Help Needed Not on file 02/13 Sex and Gender Information Value Date Recorded Sex Assigned at Not on file 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 Gender Identity Not on file Sexual Orientation Not on file Last Filed Vital Signs Vital Sign Reading Time Taken Comments Blood Pressure 142/101 09/06/2018 10:24 AM CDT Pulse 69 09/06/2018 10:10 AM CDT Temperature 35.8 C (96.4 F) 04/01/2018 9:39 AM TRANSITION COACH Respiratory Rate 18 09/06/2018 10:24 AM CDT Oxygen Saturation 91% 09/06/2018 10:24 AM CDT Inhaled Oxygen Concentration - - Weight 79.4 kg (175 lb) 09/06/2018 9:25 AM CDT Height 167.6 cm (5' 6) 09/06/2018 9:25 AM CDT Body Mass Index 28.25 09/06/2018 9:25 AM CDT Plan of Treatment Not on file Insurance BCBS 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 OF STATE 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 INSURANCE Advance Directives For more information, please contact: [phone] * Full Code (Latest Code Status on File) Date Activated Date Inactivated Comments 04/01/2018 9:38 AM 09/06/2018 8:28 AM Question Answer Comments Code status determined by: Discussion with bobby nt/legal decision maker * Full Code Date Activated Date Inactivated Comments 03/31/2018 9:38 PM 04/01/2018 9:38 AM Question Answer Comments Code status determined by: Discussion with bobby nt/legal decision maker Care Teams Home Visits Nurse Relationship Specialty [place] [address] [place] [phone] PCP - General Family Practice 09/06/18
--- OUTSIDE RECORDS SUMMARY | 2024-03-28 12:05 | XMS_ITS | Clinical Summary ---
Author Organization [facility] Address [address] [place] [address] Care Team Providers Care Internet Database Specialist Name Role Phone Dustin Christianson Primary Care Provider Allergies No known active allergies Medications multivitamin, therapeutic with minerals (THERA-VIT-M) TABS Take 1 tablet by mouth daily Active Metoprolol Succinate 50 MG CS24 Take 50 mg by mouth daily Active HYDROCHLOROTHIA ZIDE PO Take 25 mg by mouth daily Active potassium chloride SA (K-DUR/KLOR-CON M) 10 MEQ CR tablet Take 10 mEq by mouth daily as needed for potassium supplementation Active Family History Medical History Relation Comments Colon Cancer Father Relation Status Comments Father Social History Tobacco Use Types Packs/Day Years [...] on file 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 Gender Identity Not on file Sexual Orientation Not on file Last Filed Vital Signs Vital Sign Reading Time Taken Comments Blood Pressure 142/101 09/06/2018 10:24 AM CDT Pulse 69 09/06/2018 10:10 AM CDT Temperature 35.8 C (96.4 F) 04/01/2018 9:39 AM MANAGER TRADING Respiratory Rate 18 09/06/2018 10:24 AM CDT Oxygen Saturation 91% 09/06/2018 10:24 AM CDT Inhaled Oxygen Concentration - - Weight 79.4 kg (175 lb) 09/06/2018 9:25 AM CDT Height 167.6 cm (5' 6) 09/06/2018 9:25 AM CDT Body Mass Index 28.25 09/06/2018 9:25 AM CDT Plan of Treatment Not on file 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 Advance Directives For more information, please contact: [phone] * Full Code (Latest Code Status on File) Date Activated Date Inactivated Comments 04/01/2018 9:38 AM 09/06/2018 8:28 AM Question Answer Comments Code status determined by: Discussion with bobby nt/legal decision maker * Full Code Date Activated Date Inactivated Comments 03/31/2018 9:38 PM 04/01/2018 9:38 AM Question Answer Comments Code status determined by: Discussion with bobby nt/legal decision maker Care Teams Internet Database Specialist Relationship Specialty [place] [address] [place] [phone] PCP - General Family Practice 09/06/18
[2024-03-28 12:15] LABS: D Dimer Quantitative* < 0.27 ug/ml (0.00-0.50)
[2024-03-28 12:16] LABS: NT Pro B Type NatriureticPept* 97 pg/mL
--- NOTE | 2024-03-28 12:33 | XR_ITS ---
Patient: PHYLLIS BOYKIN Facility:?[facility] Patient ID:?[id number] Site Patient ID:?[id number]. Site :?1955 Study:?XRay-Chest 2V-03/28/2024 1:17:40 PM Ordering Physician:Earl Hughes Final Report: INDICATION: Left-sided chest pain, no fever, cough TECHNIQUE: Chest radiograph 2 views COMPARISON: 01/25/2023 FINDINGS: The sensitivity and specificity of the exam are moderately limited by the patient`s body habitus. Mediastinum: The mediastinum is normal in appearance. The heart silhouette is normal in size and morphology. Lung: Both lungs are unremarkable in appearance with small lung volumes. No sign of pleural effusion seen. No pneumothorax is identified. Bone and Soft tissue: Multiple calcified joint bodies are seen in the left shoulder near the coracoid recess. IMPRESSION: 1. No acute cardiopulmonary disease is seen. Dictated by Arturo Brambila MD @ 03/28/2024 1:26:05 PM Dictated by: Arturo Brambila MD @ 03/28/2024 13:26:09 Signed by:?Arturo Brambila MD @03/28/2024 1:26:09 PM (Electronic Signature)
== END 2024-03-28 14:17 | disposition home or self-care (01) ==
PROVIDERS: Emergency Provider Student in an Organized Health Care Education/Training Program
DX: R07.9 Chest pain, unspecified (principal); M79.602 Pain in left arm
CPT/HCPCS: 36415; 71046; 80053; 83690; 83880; 84484; 85025; 85379; 93005; 96374; 99283; 99284; 99285; J1885

== ENCOUNTER 2024-03-29 12:47 | Outpatient (CLI) | payer MEDICARE, SELFPAY ==
--- OUTSIDE RECORDS SUMMARY | 2024-03-29 12:51 | XMS_ITS | Referral Summary ---
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 Gender Identity Not on file Sexual Orientation Not on file Last Filed Vital Signs Vital Sign Reading Time Taken Comments Blood Pressure 142/101 09/06/2018 10:24 AM CDT Pulse 69 09/06/2018 10:10 AM CDT Temperature 35.8 C (96.4 F) 04/01/2018 9:39 AM INCOME TAX ANALYST Respiratory Rate 18 09/06/2018 10:24 AM CDT Oxygen Saturation 91% 09/06/2018 10:24 AM CDT Inhaled Oxygen Concentration - - Weight 79.4 kg (175 lb) 09/06/2018 9:25 AM CDT Height 167.6 cm (5' 6) 09/06/2018 9:25 AM CDT Body Mass Index 28.25 09/06/2018 9:25 AM CDT Plan of Treatment Not on file 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 Advance Directives For more information, please contact: [phone] * Full Code (Latest Code Status on File) Date Activated Date Inactivated Comments 04/01/2018 9:38 AM 09/06/2018 8:28 AM Question Answer Comments Code status determined by: Discussion with bobby nt/legal decision maker * Full Code Date Activated Date Inactivated Comments 03/31/2018 9:38 PM 04/01/2018 9:38 AM Question Answer Comments Code status determined by: Discussion with bobby nt/legal decision maker Care Teams History Teacher Relationship Specialty [place] [address] [place] [phone] PCP - General Family Practice 09/06/18
--- OUTSIDE RECORDS SUMMARY | 2024-03-29 12:51 | XMS_ITS | Clinical Summary ---
Author Organization [facility] Address [place], [place] [address] Care Team Providers Care Child And Family Services Specialist Name Role Phone Dustin Christianson DO Primary [...] Type Department Care Team Description 02/17/2024 Refill [facility] [address] [place] [phone] Dustin Christianson DO Refill Request (Atorvastatin) from [...] Comments Blood Pressure 130/82 05/24/2023 8:25 AM RN ENDOSCOPY Pulse 50 05/24/2023 8:25 AM RN ENDOSCOPY Temperature - - Respiratory Rate - - Oxygen Saturation 98% 05/24/2023 8:25 AM RN ENDOSCOPY Inhaled Oxygen Concentration - - Weight 84.4 kg (186 lb) 05/24/2023 8:25 AM RN ENDOSCOPY Height 163.8 cm (5' 4.5) 05/24/2023 8:25 AM RN ENDOSCOPY Body Mass Index 31.43 05/24/2023 8:25 AM RN ENDOSCOPY Plan of Treatment Upcoming Encounters Date Type Department Care Team (Late st Contact Info) Description 03/29/2024 1:00 PM RN ENDOSCOPY Orders Only [facility] [address] [place] [address] 04/02/2024 11:40 AM RN ENDOSCOPY Office Visit [facility] [id number] [place] [phone] [place] [address] [place], [place] [phone] 05/28/2024 11:00 AM RN ENDOSCOPY Office Visit [facility] [address] [place] [phone] Dustin Christiansonter, [address] [place], [place] [phone] Health Maintenance Due Date Last Done Comments [...] 04/01/2021 Pneumococcal series for age 65+ Completed 3 Zoster (shingles) series for age 50+ Completed 01/14/2023, 08/13/2022 Procedures Procedure Name Priority Date/Time Associated Diagnosis Comments SCAN-COLONOSCOPY 06/15/2023 1:30 PM RN ENDOSCOPY LIPID PANEL W REFLEX MEASURED LDL Routine 05/24/2023 8:54 AM RN ENDOSCOPY Other hyperlipidemia ANTI HCV Routine 04/01/2021 4:32 PM RN ENDOSCOPY Need for hepatitis C screening test from Last 3 Months or Most Recently Relevant to Health Maintenance Results * SCAN-COLONOSCOPY (06/15/2023 1:30 PM RN ENDOSCOPY) Narrative Procedure Note Sole Hernandez MD - 06/15/2023 12:44 PM CST [facility] [address] [place] [address], [address], [place] [address] Patient Name: Collins Perry Gender: Male Exam Date: 06/15/2023 Visit Number: [id number] Age: 67 Years Date of : 1955 Attending MD: Sole Hernandez MD Medical Record#: [id number] Procedure: Colonoscopy Indications: Previous adenomatous polyp(s) Referring [...] signed by: Lorenzo Celestin [place] [address] Orders Instruction(s)/Education: Instruction/Education Timeframe Assessment Colon Cancer [...] we can updateyour record. _Electronically signed by: Soel Hernandez MD 06/15/2023 cc: Dustin Christianson DO cc: Dustin Christianson DO Sole Hernandez MD OTHER * LIPID PANEL W REFLEX MEASURED LDL (05/24/2023 8:54 AM RN ENDOSCOPY) CHOLESTEROL,TOTAL 136 100 - 199 mg/dL 05/24/2023 2:31 PM RN ENDOSCOPY [facility] Comment: Cholesterol, Total Reference Ranges Desirable <200 mg/dL Borderline 200-239 mg/dL High >=240 mg/dL TRIGLYCERIDES 81 <150 mg/dL 05/24/2023 2:31 PM RN ENDOSCOPY [facility] HDL CHOLESTEROL 43 >40 mg/dL 2:31 PM RN ENDOSCOPY [facility] NON-HDL CHOLESTEROL 93 <145 mg/dl 05/24/2023 2:31 PM RN ENDOSCOPY [facility] CHOL/HDL RATIO 3.16 <4.50 05/24/2023 2:31 PM RN ENDOSCOPY [facility] LDL CHOLESTEROL 77 <=130 mg/dL 05/24/2023 2:31 PM RN ENDOSCOPY [facility] VLDL CHOLESTEROL 16 <=30 mg/dL 05/24/2023 2:31 PM RN ENDOSCOPY [facility] PROVIDER ORDERED STATUS RANDOM 05/24/2023 2:31 PM RN ENDOSCOPY [facility] Blood BLOOD SPECIMEN / Unknown Venipuncture / Unknown 05/24/2023 8:54 AM RN ENDOSCOPY 05/24/2023 8:54 AM RN ENDOSCOPY Dustin Christianson DO CHEMISTRY [facility] [address] [place] [address], * ANTI HCV (04/01/2021 4:32 PM RN ENDOSCOPY) HEPATITIS C ANTIBODY Non-React loraine Non-React loraine 04/01/2021 10:59 PM RN ENDOSCOPY [facility] Comment:Antibodies to HCV no t detected; does not exclude the possibility of exposure to HCV. Blood BLOOD SPECIMEN / Unknown Venipuncture / Unknown 04/01/2021 4:32 PM RN ENDOSCOPY 04/01/2021 4:34 PM RN ENDOSCOPY Dustin Christianson DO SEND OUTS [facility] [address] [place] [address], from Last 3 Months or Most Recently Relevant to Health Maintenance Care Teams Child And Family Services Specialist Relationship Specialty [place] [address] [place] [address] PCP - General Family Practice 01/18/18
--- OUTSIDE RECORDS SUMMARY | 2024-03-29 12:51 | XMS_ITS | Clinical Summary ---
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 Gender Identity Not on file Sexual Orientation Not on file Last Filed Vital Signs Vital Sign Reading Time Taken Comments Blood Pressure 142/101 09/06/2018 10:24 AM CDT Pulse 69 09/06/2018 10:10 AM CDT Temperature 35.8 C (96.4 F) 04/01/2018 9:39 AM MONITORING MANAGER Respiratory Rate 18 09/06/2018 10:24 AM CDT Oxygen Saturation 91% 09/06/2018 10:24 AM CDT Inhaled Oxygen Concentration - - Weight 79.4 kg (175 lb) 09/06/2018 9:25 AM CDT Height 167.6 cm (5' 6) 09/06/2018 9:25 AM CDT Body Mass Index 28.25 09/06/2018 9:25 AM CDT Plan of Treatment Not on file 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 Advance Directives For more information, please contact: [phone] * Full Code (Latest Code Status on File) Date Activated Date Inactivated Comments 04/01/2018 9:38 AM 09/06/2018 8:28 AM Question Answer Comments Code status determined by: Discussion with bobby nt/legal decision maker * Full Code Date Activated Date Inactivated Comments 03/31/2018 9:38 PM 04/01/2018 9:38 AM Question Answer Comments Code status determined by: Discussion with bobby nt/legal decision maker Care Teams Internal Revenue Service Agent Relationship Specialty [place] [address] [place] [phone] PCP - General Family Practice 09/06/18
--- OUTSIDE RECORDS SUMMARY | 2024-03-29 12:51 | XMS_ITS | Encounter Summary ---
Author Organization [facility] Address [address] [place] [address]. 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
[2024-03-29] MEDS: PERFLUTREN LIPID MICROSPHERES 2 ML VIAL IVP (13:25)
[2024-03-29 13:40] VITALS: BP 172/96; RESP 16
--- NOTE | 2024-03-29 13:52 | P.STN_ITS ---
Stress Test Note Date Date Seen: 03/29/24 Date of test: 03/29/24 Providers Referring provider: Saul Tapia Primary care provider: Not a Local Provider Stress test physician: Cynthia Concepcion Stress Test Note Stress test ordered: Stress Echo Indication for test: Chest pain [facility] Results discussion: Resting EKG: sinus rhythm, 64 beats per minute. Isolated flipped T-waves V1. No infarct or ischemia. Resting blood pressure: 170/106 Stress test: Patient is consented on ordered stress test agrees to proceed. Patient was exercised on the treadmill following a standard Dorian protocol. Patient exercised to 9 minutes 16 seconds, stopping due to reaching exercise capacity. He denied any significant shortness of breath out of proportion for exercise he was doing, he had no chest pain. No arrhythmia or significant ischemic change noted, did have few isolated PVCs during recovery initially which abated. Patient achieved a maximum heart rate of 144 during exercise, giving him a rate pressure product of 24,480 with a blood pressure of 170/80. the maximum heart rate of 144 beats per minute was 110% of a calculated target heart rate of 130. Exercise equivalent of 10.7 Mets achieved. Patient did have mild hypertensive response but did hold his metoprolol appropriately today, he will take when he gets home. Echo images pending, to be read later by Cardiology. Impression: Subjectively negative, objectively negative EKG portion of this stress echo. Follow up suggested: Patient was discharged from here in stable condition. He is aware that echo images will be sent to couple this test for a full formal diagnostic once read. He has a follow-up appointment with his primary care provider at [facility] on April 02. Did discuss with his patient that he could call his facility on Tuesday and leave a message to see if they could look up his stress test results for him. his primary care provider at that facility is Dr. Collins Christianson.
== END 2024-03-29 13:50 | disposition home or self-care (01) ==
PROVIDERS: Visit Provider Student in an Organized Health Care Education/Training Program
DX: R07.89 Other chest pain (principal)
CPT/HCPCS: 93016; 93325; 93351; Q9957